=== PATIENT | female | born 1960 | race African-American/Black ===

== ENCOUNTER 2019-04-02 07:10 | Emergency (ER) | payer OTHER ==
[2019-04-02 08:14] LABS: #Basophils 0.1 thou/uL (0.0-0.2); #Eosinphils 0.1 thou/uL (0.0-0.7); #Monocytes 0.8 thou/uL (0.11-0.59); #Neutrophils 7.2 thou/uL (1.40-6.50); %Basophils 1.1 % (0.0-1.0); %Eosinophils 1.1 % (0.0-10.0); %Lymphocytes 19.9 % (21.0-51.0); %Neutrophils 69.9 % (42.0-75.0); Hemoglobin 8.3 g/dL (12.0-16.0); Mean Corpuscular HGB CONC 31.6 g/dL (32.0-36.0); Mean Corpuscular Volume 94.9 fL (78.0-98.0); Mean Platelet Volume 9.2 fL (7.4-10.4); Platelet Count 198 thou/uL (130-400); RBC Distribution Width 14.3 % (11.5-14.5); Red Blood Cell (RBC) Count 2.76 mill/uL (4.20-5.40); White Blood Cell (WBC) Count 10.2 thou/uL (4.8-10.8)
[2019-04-02 08:30] LABS: ALT (SGPT) 56 U/L (8-55); AST (SGOT) 32 U/L (5-34); Albumin 3.6 g/dL (3.5-5.0); Alkaline Phosphatase 680 U/L (40-150); Bilirubin, Total 0.9 mg/dL (0.2-1.2); CK (CPK) 44 U/L (29-168); Calc. Creatinine Clearance 0 mL/min (70-130); Calcium 9.1 mg/dL (7.8-10.44); Chloride 117 mmol/L (98-107); Estimated GFR-MDRD 10; Globulin 4.8 g/dL (2.4-3.5); Glucose 111 mg/dL (70-105); Potassium 5.1 mmol/L (3.5-5.1); Protein, Total 8.4 g/dL (6.0-8.3); Sodium 140 mmol/L (136-145)
[2019-04-02 08:31] LABS: Acetaminophen Less than 6.0 mcg/mL (10.0-30.0); Alcohol Less than 10 mg/dL (Less than 10); Salicylate Less than 8.0 mg/dL (15.0-30.0)
[2019-04-02 08:43] LABS: CKMB 6.6 ng/mL (0-6.6)
[2019-04-02 08:44] LABS: Carbon Dioxide Less than 8 mmol/L (22-29)
[2019-04-02 08:49] LABS: BUN (Urea Nitrogen) 154 mg/dL (9.8-20.1)
[2019-04-02 09:06] LABS: Base Excess-Venous -22.2 mmol/L (-2.0 to 3.0); Bicarbonate (HCO3v) 6.9 mmol/L (22.0-28.0); CO2 Tension (PvCO2) 25.6 mmHg (40.0-50.0); Calcium, Ionized 1.27 mmol/L (See Comments:); Chloride 124 mmol/L (98-107); Hemoglobin - Calc 9.1 g/dL (12.0-16.0); Potassium 5.8 mmol/L (3.5-5.1); Sodium 144 mmol/L (138-145); T. Carbon Dioxide 7.6 mmol/L (22.0-28.0); vO2 Saturation-calc 50.5 % (60.0-85.0)
[2019-04-02] MEDS ORDERED: Dextrose 5% in Water 1,000 ML ONE (09:12)
[2019-04-02] MEDS ORDERED: Sodium Bicarb 50 MEQ/50 ML Abboject 8.4% SYRINGE ONE ×2 (09:12→09:20)
--- NOTE | 2019-04-02 09:15 | CT ---
BRAIN CT WITHOUT IV CONTRAST: HISTORY: Altered mental status. FINDINGS: There is some motion artifact. Large area of encephalomalacia in the left occipital and posterior pa rietal region, evidence for prior infarct. There is some associated brain volume loss. Mucosal walker ges in the left sphenoid sinus. The mastoids are clear. No evidence for acute hemorrhage or mass. 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 Atrophy and chronic white matter ischemic change. Left sphenoid sinus mucosal disease. No mass or bleed. POS: C
--- NOTE | 2019-04-02 09:25 | RAD ---
RADIOGRAPH CHEST 1 VIEW: Date: 04/02/19 Time: 0820 hours HISTORY: 58-year-old female with malaise. COMPARISON: None available. FINDINGS: Cardiomegaly and pulmonary venous congestion. Mild nodular interstitial densities which are questiona ble for pulmonary edema. Lateral costophrenic angles are sharp. No pneumothorax. IMPRESSION: Probable congestive heart failure. EVIE [] POS: [facility]
== END 2019-04-02 09:50 | disposition short-term general hospital (02) ==
LOC: NAV ERS 07:10
DX: E87.2 Acidosis (principal); N17.9 Acute kidney failure, unspecified; N17.0 Acute kidney failure with tubular necrosis; E11.9 Type 2 diabetes mellitus without complications; E78.5 Hyperlipidemia, unspecified; J45.909 Unspecified asthma, uncomplicated; Z79.82 Long term (current) use of aspirin; Z79.899 Other long term (current) drug therapy
CPT/HCPCS: 70450; 71045; 80053; 80307; 82140; 82330; 82550; 82553; 82803; 83605; 83880; 84443; 84484; 85025; 93005; 96374; J7070